=== PATIENT | male | born 1980 | race Caucasian/White ===

== ENCOUNTER 2021-01-09 08:32 | Outpatient (CLI) | payer OTHER, SELFPAY ==
[2021-01-10 14:55] LABS: COVID-19 RT-PCR UVMMC Result Negative (Negative)
== END 2021-01-09 08:33 | disposition home or self-care (01) ==
PROVIDERS: PCP Internal Medicine; Visit Provider Internal Medicine
DX: Z20.822 Contact with and (suspected) exposure to COVID-19 (principal)
CPT/HCPCS: U0003

== ENCOUNTER 2024-10-28 16:29 | Emergency (ER) | payer OTHER, SELFPAY ==
--- NOTE | 2024-10-28 16:30 | DI.RAD_ITS ---
Exam(s) XR HAND LT LIMITED EXAM: XR HAND LT LIMITED CLINICAL HISTORY: Visibly deformed PIP left middle finger. TECHNIQUE: 2D digital imaging was performed. COMPARISON: No exams were available for comparison FINDINGS: Two views-AP and lateral Limited two view study of the left hand reveals no evidence of fracture or dislocation nor abnormal s oft tissue densities. Bone density is normal. There are no osseous lesions nor erosions. IMPRESSION: No significant osseous findings on this limited two view study of the left hand. DATA REPOSITORY: RADIATION DOSE DELIVERED:
[2024-10-28 16:31] VITALS: BP 142/89; PULSE 80; RESP 18; TEMP 36.4; O2SAT 96
--- NOTE | 2024-10-28 16:45 | W.ED.GENAD ---
Discharge Plan Disposition Patient Disposition: Home Discharge Details Clinical Impression: Dislocation of distal interphalangeal (DIP) joint of finger Primary Care Provider: None,None ED Provider: Nancy Sullivan Home Meds and New Rx's Prescriptions: No Action ibuprofen [Advil Liqui-Gel] 200 MG capsule 200 mg PO Q4H PRN Patient Comments: 08/22/14 pt states he takes `~10 tabs/day Discharge Instructions Instructions: Finger Dislocation (DC) Additional Instructions: You may use Tylenol or ibuprofen as needed for discomfort. Ice and elevation may also be helpful. Return to emergency care if you develop new numbness, color change to finger, or if you are very worried and need to be rechecked again immediately Discharge Data Discharge Date/Time-TO BE ENTERED AT DEPARTURE: 10/28/24 17:29 HPI General Date/Time Provider Initiated Documentation: 10/28/24 16:40. HPI Narrative: Munod is a 44year old male who presents to the emergency department today for evaluation of left middle finger pain. He reports that he fell getting up that struck, landed with his left middle finger extended, immediately deformed. He does have sensation distally. No previous injury to this finger. He is right-handed. No other injuries reported. No significant past medical history. Physical exam remarkable for visibly dislocated left middle finger DIP. Sensation intact. Brisk cap refill. No overlying abrasion/lacerations/skin tears. D/dx includes but is not limited to: Dislocation, fracture Digital block and reduction performed by Dr. Mcknight. Please see his note. I independently interpreted the following tests: Left hand x-ray, no fracture noted. Dislocation was reduced. Reviewed discharge instructions with patient, including symptomatic management and red flags indicating need for return to emergency care Related Data Home Medications ?Medication ?Instructions ?Recorded ?Confirmed ibuprofen 200 mg capsule (Advil 200 mg PO Q4H PRN 08/22/14 10/28/24 Liqui-Gel) Allergies Allergy/AdvReac Type Severity Reaction Status Date / Time No Known Allergies Allergy Unverified 10/28/24 16:36 General Stated Complaint: Orthopedic COURTNEY: 4 Review of Systems Narrative: See HPI Exam Const General: cooperative, healthy appearing, no acute distress, well developed and well groomed Nutritional Appearance: average body habitus Orientation: alert and oriented x3 Resp Effort & Inspection: normal respiratory effort and able to speak in complete sentences Skin General skin exam: no rashes or lesions noted Trauma: no lacerations or abrasions Neuro General: patient alert, patient oriented x3, tone normal, moves all extremities and no focal motor deficits Sensory Exam: no sensory deficits noted Extrem Right upper extremity: normal to inspection Left upper extremity: hand Details: normal capillary refill, neurosensory exam normal and other (Obvious deformity consistent with dislocation of DIP to middle finger); no unusual warmth, no swelling, no abrasions, no lacerations, no ecchymosis, no foreign bodies and no puncture wound Course Vital Signs Vital signs: Vital Signs Temperature 36.4 C 10/28/24 16:31 Pulse 80 10/28/24 16:31 Respiratory Rate 18 10/28/24 16:31 Blood Pressure 142/89 H 10/28/24 16:31 Pulse Oximetry 96 10/28/24 16:31 Temperature 36.4 C 10/28/24 16:31 Temperature Source Oral 10/28/24 16:31 Pulse 80 10/28/24 16:31 Respiratory Rate 18 10/28/24 16:31 Blood Pressure 142/89 H 10/28/24 16:31 Blood Pressure Position Sitting 10/28/24 16:31 Pulse Oximetry 96 10/28/24 16:31 Oxygen Delivery Method Nasal Cannula 10/28/24 16:31 Medical Decision Making Imaging Data Radiologic Study: Radiologist's impression: Exam(s) XR HAND LT LIMITED EXAM: XR HAND LT LIMITED CLINICAL HISTORY: Visibly deformed PIP left middle finger. TECHNIQUE: 2D digital imaging was performed. COMPARISON: No exams were available for comparison FINDINGS: Two views-AP and lateral Limited two view study of the left hand reveals no evidence of fracture or dislocation nor abnormal soft tissue densities. Bone density is normal. There are no osseous lesions nor erosions. IMPRESSION: No significant osseous findings on this limited two view study of the left hand. 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 Chronic right-sided low back pain without sciatica (Chronic) [facility] Family History Mother Rheumatoid arthritis Arrhythmia Arthritis COPD (chronic obstructive pulmonary disease) Father Hyperlipidemia Sister Rheumatoid arthritis Arthritis RA Brother No problems noted. Grandfather Diabetes Personal history of malignant neoplasm colon CA Grandmother Heart disease Son No problems noted. Daughter No problems noted. Daughter No problems noted. Daughter No problems noted. Maternal Uncle , [place] at age 41. Heart disease Maternal Cousin , [place] at age 20. Personal history of malignant neoplasm Heart disease Maternal Aunt Diabetes type 1 Maternal Aunt Stroke Grandfather Heart disease Social History Smoking/Tobacco Use Status: Never Smoking risk assessment performed?: Yes Alcohol Intake: current Alcohol Intake frequency: a few times a week Substance use type: does not use Housing: house Do you feel safe at home: Yes Do you feel safe in your relationship?: Yes PAWSS Have you Been Recently Intoxicated or Drunk Within the Last 30 days?: No Have you Ever Experienced Previous Episodes of Alcohol Withdrawal?: No Have you ever Experienced Withdrawal Seizures?: No Have you ever Experienced Delirium Tremens(DT)s?: No Have you ever undergone Alcohol Rehabilitation Treatment (i.e, inpt ot outpatient treatment programs)?: No Have you ever Experienced Blackouts?: No Have you ever Combined Alcohol with other Downers within the last 90 days?: No Have you ever Combined Alcohol with any other Substance of Abuse during the last 90 days?: No Positive Blood Alcohol level on Presentation? [PCS.BAL]: No Evidence of Increased Autonomic Activity (i.e. HR>120, tremor, sweating, agitation, nausea)?: No Result: 0
[2024-10-28] MEDS: Bupivacaine 0.5% Pres-Free 30 ML VIAL (17:03)
--- NOTE | 2024-10-28 17:17 | W.ED.PROC ---
Date of service: 10/28/24 Time of Service: 17:17 Procedures Orthopedic Joint Reduction Joint #1: Time Out Performed: Yes Side: left Joint Reduction Location: finger Analgesia: digital block Local Anesthesia: Bupivicaine 0.25% Amount of anesthesic used (mL): 3 Technique used: traction/counter-traction Post-reduction neuro exam: intact Post-reduction vascular: intact Post Reduction X-Ray Obtained: Yes Post Reduction X-Ray Results: reduced Splint Applied: No Patient Tolerated Procedure: no complications Medical Decision Making Patient demonstrated evidence of dislocation at the distal phalange he. Finger was blocked after demonstrating normal neurovascular exam. Finger was reduced without complication. Patient tolerated this well and a good movement afterward with excellent capillary refill. I have extensively reviewed the treatment plan and discharge instructions with the patient. I have addressed all patient concerns at this time. The patient was made aware of what symptoms to monitor for that would warrant a return to the emergency department. Discussed the plan with the patient, they demonstrate verbal understanding and agreement with our assessment and plan at this time. The documentation in this chart was dictated using [employer] dictation software. Please excuse any dictation errors. Quality:SDOH Health Related Social Needs: No Data to Display
--- OUTSIDE RECORDS SUMMARY | 2024-10-28 17:22 | XMS_ITS | Encounter Summary ---
Author Organization [facility] Address [facility] [place] [address] Care Team Providers Care Financial Wellness Coach Name Role Phone Love Jimenez MD Primary Care Provider Encounter Details Date Type Department Care Team (Latest Contact Info) Description 12/13/2014 12:50 PM EST - 12/13/2014 11:59 PM EST Hospital Encounter XRay at [address] [place] [address] Spondyloarthritis Social History Tobacco Use Types Packs/Day Years Used Date Smoking Tobacco: Former Sex and Gender Information Value Date Recorded Sex Assigned at Not on file Gender Identity Not on file Sexual Orientation Not on file documented as of this encounter Medications at Time of Discharge Medication Sig Dispensed Refills Start Date End Date diclofenac (VOLTAREN) 50 mg Tablet, Delayed Release (E.C.) Take 1 tablet by mouth 3 times daily as needed (For pain and stiffness). 90 tablet 3 12/13/2014 06/22/2018 documented as of this encounter Plan of Treatment Not on file documented as of this encounter Procedures Procedure Name Priority Date/Time Associated Diagnosis Comments XR LUMBAR SPINE 2 OR 3 VIEWS Routine 12/13/2014 12:58 PM EST Spondyloarthritis documented in this encounter Results * XR lumbar spine 2 or 3 views (12/13/2014 12:58 PM EST) Anatomical Region Laterality Modality L-spine N/A Radiographic Mal[place] ging 12/13/2014 12:5 8 PM EST Impressions 12/13/2014 1:09 PM EST IMPRESSION: 1. No recent or acute fracture. 2. Mild scattered degenerative changes are noted in lumbar spine Narrative 12/13/2014 1:09 PM EST EXAMINATION: LSPINE 2 OR 3 VIEWS CLINICAL HISTORY: Inflammatory back pain - suspect ankylosing spondylitis TECHNIQUE: AP and lateral. COMPARISON: None FINDINGS: No recent or acute fracture is identified. Mild scattered degenerative changes are noted in lumbar spine. There is no bony ankylosis. No bony erosions are identified. Mild osteoarthritis involves the sacroiliac joints, right more than left. No lytic or blastic lesions are identified Procedure Note Porfirio Springer MD - 12/13/2014 EXAMINATION: LSPINE 2 OR 3 VIEWS CLINICAL HISTORY: Inflammatory back pain - suspect ankylosingspondylitis TECHNIQUE: AP and lateral. COMPARISON: None FINDINGS: No recent or acute fracture is identified. Mild scattered degenerativechanges are noted in lumbar spine. There is no bony ankylosis. No bony erosionsare identified. Mild osteoarthritis involves the sacroiliac joints, right more than left. No lytic or blastic lesions are identified IMPRESSION IMPRESSION: 1. No recent or acute fracture. 2. 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
--- OUTSIDE RECORDS SUMMARY | 2024-10-28 17:22 | XMS_ITS | Encounter Summary ---
Author Organization [facility] Address [address] [place] [address] Care Team Providers Care Salesperson New Cars Name Role Phone Unavailable Primary Care Provider Unavailabl e Encounter Details Date Type Department Care Team (Late st Contact Info) Description 01/09/2021 Lab Requisition [facility] Pathology & Laboratory Medicine - [facility] [address] [place] [address] Outr Resulting Lab, Provider Social History Tobacco Use Types Packs/Day Years Used Date Smoking Tobacco: Never Assessed Interpersonal Safety Answer Date Record ed Physically Hurt Never 01/10/2021 Verbally Threaten Not on file 01/10/2021 Sex and Gender Information Value Date Recorded Sex Assigned at Not on file Legal Sex Male 11:42 EDT Gender Identity Not on file Sexual Orientation Not on file documented as of this encounter Plan of Treatment Not on file documented as of this encounter Procedures Procedure Name Priority Date/Time Associated Diagnosis Comments ZZCOVID-19 TEST [facility] PCR Today 01/09/2021 8:41 EDT COVID-19 TESTING Routine 01/09/2021 8:41 EDT documented in this encounter Results * COVID-19 TEST [facility] PCR (01/09/2021 8:41 EDT) Swab ENTIRE NASOPHARYNX / Unknown 01/09/2021 8:41 EDT 01/09/2021 16:54 EDT us Provider Outr Resulting Lab MICROBIOLOGY - GENER AL ORDERABLES Final Result [facility] [address] [place] [address] * COVID-19 TESTING (01/09/2021 8:41 EDT) COVID-19 rt-PCR Result Negative Negative 01/10/2021 14:[address] [facility] Comment: This test has not been FDA cleared or approved. This test has been authorized by FDA under an EUA for use by authorized laboratories. This test has been authorized only for detection of nucleic acid from 2019-nCoV, not for any other viruses or pathogens. This test is only authorized for the duration of the declaration that circumstances exist justifying the authorization of emergency use of in vitro diagnostic tests for detection and/or diagnosis of 2019-nCoV under section 564(b)(1) of Act, 21 U.S.C ?? 360bbb-3(b) (1), unless the authorization is terminated or revoked sooner. Negative results do not preclude 2019-nCoV infection and should not be used as the sole basis for treatment or other patient management decisions. Negative results must be combined with clinical observations, patient history, and epidemiological information. This test was developed and its performance characteristics determined by [facility]. It has not been cleared or approved by the US Food and Drug Administration. FDA does not require this test to go through premarket FDA review. This test is used for clinical purposes. It should not be regarded as investigational or for research. This laboratory is certified under the Clinical Laboratory Improvement Amendments (CLIA) as qualified to perform high complexity clinical laboratory testing. This test is based on the [facility] COVID-19 Emergency Use Authorization (EUA) assay, with minor modification as defined by the FDA Performed on the Renewable Fundingo 7 Flex RT-PCR System. Performing Lab [facility] Lab 01/10/2021 14:[address] [facility] Swab 01/09/2021 8:41 EDT 01/09/2021 16:54 EDT us Provider Outr Resulting Lab MICROBIOLOGY - GENER AL ORDERABLES Final Result [facility] [address] [place] [address] documented in this encounter Visit Diagnoses Not on filedocumented in this encounter
--- OUTSIDE RECORDS SUMMARY | 2024-10-28 17:22 | XMS_ITS | Clinical Summary ---
Author Organization [facility] Address [address] [place] [address] Care Team Providers Care Patient Financial Specialist Name Role Phone Unavailable Primary Care Provider Unavailabl e Social History Tobacco Use Types Packs/Day Years Used Date Smoking Tobacco: Never Assessed Interpersonal Safety Answer Date Record ed Physically Hurt Never 01/10/2021 Verbally Threaten Not on file 01/10/2021 Sex and Gender Information Value Date Recorded Sex Assigned at Not on file Legal Sex Male 11:42 EDT Gender Identity Not on file Sexual Orientation Not on file Plan of Treatment Health Maintenance Due Date Last Done Comments Hepatitis C Screen 1979 Hepatitis B Vaccine (1 of 3 - 19+ 3-dose series) 02/20 COVID-19 Vaccine ( season) 2024
--- OUTSIDE RECORDS SUMMARY | 2024-10-28 17:22 | XMS_ITS | Clinical Summary ---
Author Organization [facility] Address [facility] [place] [address] Care Team Providers Care Mlt Name Role Phone Love Jimenez MD Primary Care Provider [phone] Allergies No known active allergies Medications Medication Sig Dispensed Refills Start Date End Date Status Ibuprofen 200 mg Capsule 400mg Every 6 hours, as needed 12/16/2016 Active acetaminophen (TYLENOL) 500 mg Tablet Take 1,000 mg by mouth every 6 hours as needed for Pain. Active meloxicam (MOBIC) 7.5 mg TabletIndications:Chr onic right-sided low back pain without sciatica,Chronic pain of both knees Take 1 tablet by mouth daily. 30 tablet 12 06/22/2018 Active Active Problems Problem Noted Date Diagnosed Date Chronic right-sided low back pain without sciati ca 06/22/2018 Chronic pain of both knees 06/22/2018 Immunizations Name Administration Dates Next Due Influenza (FluMist) Trivalent Intranasal, LIVE 1 Social History Tobacco Use Types Packs/Day Years Used Date Smoking Tobacco: Never Smokeless Tobacco: Never Sex and Gender Information Value Date Recorded Sex Assigned at Not on file Gender Identity Not on file Sexual Orientation Not on file Last Filed Vital Signs Vital Sign Reading Time Taken Comments Blood Pressure 122/75 06/22/2018 1:03 PM EDT Pulse 71 06/22/2018 1:03 PM EDT Temperature 36.7 ??C (98 ??F) 12/13/2014 10:54 AM EST Respiratory Rate - - Oxygen Saturation 100% 06/22/2018 1:03 PM EDT Inhaled Oxygen Concentration - - Weight 88.5 kg (195 lb) 06/22/2018 1:03 PM EDT Height 190.5 cm (6' 3) 06/22/2018 1:03 PM EDT Body Mass Index 24.37 06/22/2018 1:03 PM EDT Plan of Treatment Health Maintenance Due Date Last Done Comments CT Colonography 1979 Colonoscopy 1979 Colorectal Cancer Screening 1979 FIT DNA 1979 FIT 1979 Sigmoidoscopy (10 year) with FIT yearly 1979 Sigmoidoscopy 1979 HIV screen 1997 Hepatitis C Screening 1997 Lipid Screening 1997 Hepatitis B vaccine (0-59 yrs) (1) 1998 Tetanus/Diphtheria/Pertussis Vaccines (1 - Tdap) 02/20 Covid-19 Vaccine (1 - season) 2024 Influenza (Flu) vaccine (1 o f 1 - Influenza standard series) 06/25/2024 07/25/2014 Care Teams Mlt Relationship Specialty Start Date End Date Love Jimenez MD [address] [place], [place] [id number] PCP - General 09/27/14
--- OUTSIDE RECORDS SUMMARY | 2024-10-28 17:22 | XMS_ITS | Encounter Summary ---
Author Organization [facility] [place] [address] Care Team Providers Care Plaster Molder Name Role Phone Love Jimenez MD Primary Care Provider [phone] Encounter Details Date Type Department Care Team (Late st Contact Info) Description 01/03/2009 Orders Only Dermatology at [place] [address] [facility] [place] [id number] Benson Wilson MD [address] [facility], [place] [address] Social History Tobacco Use Types Packs/Day Years Used Date Smoking Tobacco: Never Assessed Sex and Gender Information Value Date Recorded Sex Assigned at Not on file Gender Identity Not on file Sexual Orientation Not on file documented as of this encounter Plan of Treatment Not on file documented as of this encounter Procedures Procedure Name Priority Date/Time Associated Diagnosis Comments SURGICAL PATHOLOGY REPORT Routine 01/03/2009 6:09 PM EDT documented in this encounter Results * Surgical Pathology Report (01/03/2009 6:09 PM EDT) Surgical Pathology Report [id number] ? Location: [facility] The signing pathologist has (i) examined the relevant preparation(s) for the specimen(s) and (ii) rendered or confirmed the diagnosis(es). . ?Pathology Surgical Pathology Final Report Clinical Information Specimen Submitted: A - (L) neck, (L) arm, 4-mm Punch (2): Clinical History: 6-8-week H/O pruritic generalized papular dermatitis Clinical Diagnosis: Spongiotic dermatitis vs ? Report to: Benson Wilson MD, III [facility] [place], [place] ??[address] Gross Description Labeled/Fixative : ? Labeled with the patient's name, formalin. Qty/Size/Weight: ?Two punches, 0.4 cm, of harman skin, excised to depths ?of 0.2 cm and 0.4 cm. Sections/Process ing: ??The shallow punch is marked with black ink. ??Both are ?bisected. ??(T1) ??aje/EJR Microscopic Description Slides reviewed, microscopic description not recorded. Diagnosis Skin, left neck and left arm, punch biopsy: ?? Spongiotic dermatitis with parakeratosis, focal erosion containing superficial neutrophilic infiltrate, superficial perivascular lympho-eosinophi lic infiltrate (see Comment). CR-0 01/08/09 VMS 01/08/09 Verified by: ? Serge BORRERO, PhD, [place] ?Dermatopatholo gist ?(Electronic Signature) The attending pathologist whose signature appears on this report has reviewed all diagnostic slides and has edited the gross and/or microscopic portion of the report in rendering the final pathologic diagnosis. Comment No fungi are seen in PAS-reacted sections. ? The histologic changes are consistent with spongiotic/eczem atous dermatitis. [facility] 01/03/2009 6:09 PM EDT Benson Wilson MD PATHOLOGY/CYTOLOGY O RDERABLES [facility] documented in this encounter Visit Diagnoses Not on filedocumented in this encounter Care Teams Plaster Molder Relationship Specialty Start Date End Date Love Jimenez MD [address] [place] [address] PCP - General 09/27/14 documented as of this encounter
--- OUTSIDE RECORDS SUMMARY | 2024-10-28 17:22 | XMS_ITS | Encounter Summary ---
[place] [address] Care Team Providers Care Tubular Splitting Machine Tender Name Role Phone Elisabeth Jimenez MD Primary Care Provider [phone] Encounter Details Date Type Department Care Team (Latest Contact Info) Description 12/13/2014 10:45 AM EST [place] [id number] Hunter Casanova MD Spondyloarthritis Discharge Disposition: Home Social History Tobacco Use Types Packs/Day Years Used Date Smoking Tobacco: Former Sex and Gender Information Value Date Recorded Sex Assigned at Not on file Gender Identity Not on file Sexual Orientation Not on file documented as of this encounter Last Filed Vital Signs Vital Sign Reading Time Taken Comments Blood Pressure 127/79 12/13/2014 10:54 AM EST Pulse 77 12/13/2014 10:54 AM EST Temperature 36.7 ??C (98 ??F) 12/13/2014 10:54 AM EST Respiratory Rate - - Oxygen Saturation 99% 12/13/2014 10:54 AM EST Inhaled Oxygen Concentration - - Weight 89.2 kg (196 lb 9.6 oz) 12/13/2014 10:54 AM EST Height 190.5 cm (6' 3) 12/13/2014 10:54 AM EST Body Mass Index 24.57 12/13/2014 10:54 AM EST documented in this encounter Progress Notes * Hunter Casanova MD - 12/13/2014 11:22 AM EST RHEUMATOLOGY STAFF OFFICE NOTE Patient Name: Mundo Headley Date of encounter: 12/13/2014 Mr. Headley is a 34 y.o. male whom I am seeing at the request of ELISABETH JIMENEZ MD for evaluation of joint pains. Mundo feels very old. He has morning stiffness that lasts for hours. If he sits for a prolonged time he feels stiff and painful. This has been going on for about 3 or 4 years. The low back is most problematic for him. He does have pain other places, but the low back is quite troublesome. He has been to PT without much benefit. He also has pain in the hands, wrists, knees. He does not have joint swelling. In general he is feeling better if he is up and moving around. Sometimes the low back willwake him at night. He has tried ibuprofen 400mg which helps some. Tylenol occasionally helps, but not as much as ibuprofen. He has tried glucosamine/chondroitin which really didn't help at all. He has not been on any prescription medications for this. He does have fatigue. He has had eczema, but does not have any history of psoriasis (or family history). He has not had red, painful eyes. There are occasional mouth sores. He can't recall if he has ever had a toe swell up like a sausage. Bowels are normal, no diarrhea, no blood in the stool. Thereis no change to urination. There is no chest pain, no cough, no shortness of breath. PMH - Eczema - No surgeries HOME MEDICATIONS: Ibuprofen OTC as needed ALLERGIES/ADVERSE REACTIONS No Known Allergies FAMILY HISTORY: Sister has some form of arthritis, still not sure what type (three years younger). There is a cousin with rheumatoid arthritis. His mother has osteoarthritis and osteoporosis. Father has hypertension. There is no psoriasis, inflammatory bowel disease. SOCIAL HISTORY: , lives in [facility]. Works as a wireless sales representative. Has five children. Quit smoking in 2010. No alcohol, no recreational drugs.n PHYSICAL EXAM BP 127/79 Pulse 77 Temp(Src) 36.7 ??C (98 ??F) (Oral) Ht 190.5 cm (6' 3) Wt 89.177 kg (196lb 9.6 oz) BMI 24.57 kg/m2 SpO2 99% Gen: Alert, NAD, oriented, conversant HEENT: Anicteric, no scleral injection, OP clear, MMM Neck: supple, no LAD, no thyromegaly, full ROM CV: RRR, no m/r/g Resp: CTA B Abd: Soft, NT, ND, no organomegaly Back: There is no spinal or SI joint tenderness. Schobers is normal (10cm ->15 cm), and chest expansion is normal (+ 6cm). Ext: No LE edema, nodules or cyanosis Joint exam: A full joint exam was performed: Shoulders: Normal ROM, no tenderness, but he is a little slow with full abduction Elbows: Normal, no swelling, no tenderness Wrists: No swelling, no tenderness, full flexion and extension Hands: No tenderness or swelling of the MCPs, PIPs, DIPs. Full fist and claw Hips: Full ROM, no trochanteric tenderness. Knees: No effusions, there is left joint line tenderness and tenderness at the patellar tendon insertion, full ROM Ankles: No swelling, there is mild tenderness right ankle and right Achilles insertion. Feet: No MTP swelling or tenderness. Skin: No rashes or erythema Neuro: Patellar and ankle reflexes are 2+ bilaterally ASSESSMENT AND PLAN Mr. Headley is a 34 year old who has inflammatory back pain. Fortunately, he does not have evidence of a peripheral arthritis (though the left knee is a little suspicious), nor does he have evidence ofdactylitis or extra-articular disease. 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 I will get an HLA-B27, CRP, and plain films of the back and pelvis to evaluate. If there areradiologic changes than this would clearly fit. 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 I will have him take diclofenac 50mg 2 or 3 times a day, with meals. If this results in resolution of his symptoms, then we will just stick with that strategy. If not helpful, then I would try a different NSAID, either indomethacin or piroxicam. If still not helpful, then we would need to consider back MRI to evaluate for marrow edema or other radiologic evidence of . At that point we would need to have a discussion about the role of TNF inhibitors. I will see him back in one month. documented in this encounter Miscellaneous Notes * Addendum Note - Erika Skinner - 12/13/2014 12:52 PM ESTAddended by: ERIKA SKINNER on: 12/13/2014 12:52 PM Modules accepted: Orders documented in this encounter Plan of Treatment Not on file documented as of this encounter Procedures Procedure Name Priority Date/Time Associated Diagnosis Comments HLA-B27 Routine 12/13/2014 1:03 PM EST Spondyloarthritis WBC Routine 12/13/2014 1:03 PM EST CRP, CARDIAC RISK (HS CRP) Routine 12/13/2014 1:03 PM EST Spondyloarthritis documented in this encounter Results * WBC (12/13/2014 1:03 PM EST) White Blood Cell 7.6 4.0 - 10.0 x10(3)/mcL [facility] Blood specimen (specimen) 12/13/2014 1:03 PM EST 12/13/2014 1:11 PM EST Narrative Resulting Agency Comment Spec In Lab Hunter Casanova MD HEMATOLOGY ORDERABLE S [facility] * HLA-B27 (12/13/2014 1:03 PM EST) HLA-B27 Negative [facility] HLA B27 Interpretation HLA B27 antigen was not detected. Method: Flow Cytometry Reference: 1.Colten DA, Trinh FD, Octavio A, et al: Ankylosing spondylitis and HLA-27. Lancet 1973;1:904-907 2.Vasu J, Kylie CAMACHO: HLA-B27 typing by use of flow cytofluorometr y. Clin Chem 1987;33:1619-1 623 [facility] White Blood Cell 7.6 4.0 - 10.0 x10(3)/m cL [facility] Blood specimen (specimen) 12/13/2014 1:03 PM EST 12/13/2014 1:11 PM EST Narrative Resulting Agency Comment Spec In Lab Hunter Casanova MD HEMATOLOGY ORDERABLE S Performing Organization Address [facility] Phone Number [facility] * High Sensitivity CRP (12/13/2014 1:03 PM EST) C-Reactive Protein High Sensitivity <0.2 mg/L [facility] Comment: Interpretations: 1) For accurate cardiac risk assessment, the average of 2 values >2 weeks apart should be obtained (ref 1&2). A value >10 mg/L indicates an inflammatory condition, concentrations >10 mg/L should not be used for cardiac risk assessment. ?<1.0 mg/L: low risk ?1.0 - 3.0 mg/L: moderate risk ?>3.0 mg/L: high risk groups for future cardiovascular events 2) The general reference range of apparently healthy individuals using this test is <5.0 mg/L (derived from the test package insert) References: 1. Burrell TA et. al. ??AHA/CDC Scientific Statement: Markers of Inflammation and Cardiovascular Disease. ??Circulation 2003; 107:499-511 2. Ridker PM. ??Clinical applications of C-reactive protein for cardiovascular disease detection and prevention. 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
--- OUTSIDE RECORDS SUMMARY | 2024-10-28 17:22 | XMS_ITS | Encounter Summary ---
Author Organization [facility] [place] [address] Care Team Providers Care Core Piler Name Role Phone Love Jimenez MD Primary Care Provider [phone] Reason for Visit * Consultation (Routine) - Closed Specialty Diagnoses / Procedures Referred By Omar altman Referred To Contact Rheumatology Diagnoses INFLAMMATORY BACK PAIN Lola Lemon, HYDROPULPER [address] [place] [address] [facility] Rheumatology [address] [place] [id number] Referral ID Status Reason Start Date Expiration Date V isits Requested Visits Authorized [id number] Closed Consult, Test & Treat [facility] 04/26/2018 04/26/2019 1 1 Encounter Details Date Type Department Care Team (Late st Contact Info) Description 06/22/2018 1:00 PM EDT [place] [address] Marciano Rae MD [facility] [place] [address] Chronic right-sided low back pain without sciatica; Chronic pain of both knees; Fatigue, unspecified type Social History Tobacco Use Types Packs/Day Years [...] Pulse 71 06/22/2018 1:03 PM EDT Temperature - - Respiratory Rate - - Oxygen Saturation 100% 06/22/2018 1:03 PM EDT Inhaled Oxygen Concentration - - Weight 88.5 kg (195 lb) 06/22/2018 1:03 PM EDT Height 190.5 cm (6' 3) 06/22/2018 1:03 PM EDT Body Mass Index 24.37 06/22/2018 1:03 PM EDT documented in this encounter Patient Instructions * Patient Instructions* Marciano Rae MD - 06/22/2018 1:00 PM EDT Get labs today at 3L. Call or myDH for results if you don't hear from us by next week. Start meloxicam, 7.5 mg once a day with food. (Rx sent in.) You can continue to take Tylenol (acteaminophen), but not ibuprofen with the meloxicam. Depending on your response to the med and your lab work, we may proceed with an MRI of your pelvis. Follow up in 6 months. Call if problems. documented in this encounter Progress Notes * Marciano Rae MD - 06/22/2018 1:00 PM EDT Rheumatology Clinic: Dr. Rae 06/22/2018 [id number] Gabby Headley is a 38 y.o. male patient whom we see in consultation for Love Jimenez MD in evaluation of predominantly low back and knee pain. This is a patient who was seen by Dr. Hunter Casanova here in our clinic back on 11/2014. Dr. Casanova at the time felt that the patient gave a good story forinflammatory low back pain and suspected a spondyloarthropathy. The patient complained of significant stiffness in his low back andhis legs, and had the sense that he felt older than his 34 years of age at the time. He started him on diclofenac 50 mg twice a day. However, laboratory studies showed a normal CRP and a negative HLA-B27, and x-rays were read as showing an essentially normal lumbar spine and just mild degenerative changes of the SI joints, right greater than left. We do have a message back from the patient about a week after the visit reviewing the negative laboratory and x-ray studies, but also noting that the diclofenac had been dramatically helpful. In fact, the patient stated at the time that he felt the best he had in years. He was then lost to follow-up. He returns now reporting that his low back and his knees are now his major problem areas. He reallydidn't complain much about anyplace else today. He described, as before, significant gelling phenomena such that if he sits too long or goes for a long car trip, he will have difficulty standing straight up due to pain in the low back. He will also have stiff knees. He also has trouble when he first gets out of bed in the morning. He is stiff in the back and the knees and he has trouble going downstairs. Once he is going for a while, he tends to loosen up and feel better. He's found that if he keeps active, he generally does much better. In terms of location of the back pain, he points to thearea of the right SI joint. The pain will sometimes radiate down into the buttocks and the right leg, but just to the level of about the mid thigh. He's noted no significant weakness, numbness, or tingling. He does have a history of eczema that began about 10 years ago, which is around the same time that his back issue began in earnest. This predominantly involved his arms, chest, back, and almost confluent along his flank, as per Dr. Steve lyons in 2008. A biopsy showed histologic changes ... consistent with spongiotic/eczematous dermatitis. He was seen by Dr. Millard in dermatology here, who concurred. He does remember having a knee injury in high school and it was thought that he might have some cartilage damage. He also has a prominent tibial tubercle on that side. Lately though, it's the right knee that bothers him more, particularly going up and down stairs. In any case, the skin diseasedoes not bother him that much now, and he has just a few crops of this on his pretibial areas, especially on the left now. He does have flareups where things will get worse for a day or two, up to a week or so. He does not recall the dermatologists being concerned about possible psoriasis. There is no family history ofpsoriasis, but a sister has some type of inflammatory arthritis and a cousin has rheumatoid arthritis. His mother has osteoarthritis. He denies inflammatory eye disease, venereal infection, bowel problems. He does have some dry skin in his hands. He also has some dandruff and uses a psoriasis shampoo to wash his hair. He does not know what would happen if he did not shampoo every day, because he generally does. Therapeutically, he's used OTC ibuprofen and Tylenol. In terms of dosing, he specifically uses 400 mg of ibuprofen per dose and 1000 mg of acetaminophen per dose. He does not take either regularly, but just as needed. They help somewhat. Past Medical History Eczema. Reactive airway disease. 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 No previous surgery. Medications Medications 06/22/18 1306 Medication Sig Taking? Ibuprofen 200 mg Capsule 400mg Every 6 hours, as needed Yes acetaminophen (TYLENOL) 500 mg Tablet Take 1,000 mg by mouth every 6 hours as needed for Pain. Yes meloxicam (MOBIC) 7.5 mg Tablet Take 1 tablet by mouth daily. Social History He is . He is a retired marine. He has 6 children. He lives in [place]. 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 He does not drink. Denies recreational drugs. He smoked but quit in 2010. Family History His father is fairly healthy. He just has hypertension. His mother has some medical problems. She is 63 and fell and broke her arm. She has osteoarthritis and osteoporosis. His sister has some form of arthritis, for which she is on treatment. A cousin had rheumatoid arthritis. Brother is healthy. There is coronary artery disease in a maternal grandmother and grandfather. Paternal uncle of anMI in his 40s. Paternal cousin of an KS in his 20s. His grandfather had diabetes and another grandfather had a colorectal cancer. Review of Systems Positive as mentioned above. No fever, chills, sweats. Appetite is good and his weight is stable. Otherwise, the rheumatology, cardiology, pulmonary, GI, , neurology, dermatology, and hematology review of systems is negative or non-contributory. Physical Exam: He looks well. He is in good spirits. He is a soft-spoken, healthy-appearing gentleman. Blood pressure 122/75, pulse 71, height 190.5 cm (6' 3), weight 88.5 kg (195 lb), SpO2 100 %. Skin : He has some obvious dandruff and there is a small area of erythema at the posterior capital scalp, but no definite psoriatic plaques. There is nothing in his ear canals or behind his ears. HEENT: PERRL, EOM+, no eye inflammation, no oral ulcers, good moisture. Neck: Supple. No lymphadenopathy or thyromegaly. Lungs: Clear. Heart: Regular rhythm and rate without murmur, gallop, or rub. Abdomen: Benign. No masses, tenderness, or organomegaly. Extremities: No edema. Good distal pulses. Musculoskeletal: He has no synovitis in his hands. He does have some vasomotor hyperreactivity witheasy blanching of the dorsum of his fingers. (He denies Raynaud's.) There is no synovitis and very little in the way of degenerative changes. He is not hypermobile. His wrists, elbows, and shoulders move well. The area of his pain is over the right SI joint although he is not tender there today. His hips move well and motion of the hips does not produce back pain. His right knee moves well with no crepitance. There is no warmth or effusion there. His left knee has just mild crepitance on range of motion. There is no warmth or effusion. He does have a slightly prominent tibial tubercle on the left side, not on the right. His ankles are fine, including the tendon insertions. Apparently on hisvisit with Dr. Casanova, he did have some evidence of mild insertional Achilles tendinitis. His distalfeet show minimal DJD without synovitis. Neuro: 5/5 proximal muscle strength in the upper and lower extremities. DTRs 2+ and symmetrical. Toes downgoing. Negative Romberg. Assessment & Plan: We had a long discussion about his situation, but I still think there is a distinct possibility that he has a seronegative spondyloarthropathy. I wonder if his eczema is actually psoriasis, although I do not find any strong evidence of that today and he had a biopsy c/w eczema. Looking at his x-ray studies 3-1/2 years ago, I thought his SI joints were in fact abnormal, especially on the right and, this could be degenerative disease, but it's unusual for a 34-year-old without any previous trauma, etc., to have degenerative sacroiliac changes. I think at this point we really need an MRI of the pelvis to sort things out. For the time being, in addition to lab work, we started him on meloxicam 7.5 mg a day with food. I told not to take the ibuprofen while he is doing that, although we can take additional acetaminophenas he feels he needs for that. Once the labs are back and we see his response to meloxicam, we would probably move onto the MRI of the pelvis. He understood the plan. I'll see him in follow-up in 6 months. We gave the patient the following recommendations: Patient Instructions Get labs today at 3L. Call or myDH for results if you don't hear from us by next week. Start meloxicam, 7.5 mg once a day with food. (Rx sent in.) You can continue to take Tylenol (acteaminophen), but not ibuprofen with the meloxicam. Depending on your response to the med and your lab work, we may proceed with an MRI of your pelvis. Follow up in 6 months. Call if problems. Orders Placed This Encounter Procedures ??? GC/Chlamydia (Leb/CGP) Urine ??? GC/Chlam ??? CBC (with Diff) ??? Sedimentation rate ??? CRP, acute inflammation ??? Vitamin B12 ??? TSH ??? EASTON ??? Hemogram ??? Differential, Automated Visit Diagnoses: 1. Chronic right-sided low back pain without sciatica 2. Chronic pain of both knees 3. Fatigue, unspecified type Results for GABBY HEADLEY ( ) Ref. Range 06/22/2018 14:11 WBC Latest Ref Range: 4.0 - 9.5 x10(3)/mcL 7.2 RBC Latest Ref Range: 4.58 - 5.54 x10(6)/mcL 4.53 (L) Hemoglobin Latest Ref Range: 13.7 - 16.5 gm/dL 13.6 (L) Hematocrit Latest Ref Range: 40.5 - 48.5 % 40.4 (L) MCV Latest Ref Range: 82.9 - 93.1 fL 89.2 MCH Latest Ref Range: 27.5 - 32.1 pg 30.0 MCHC Latest Ref Range: 32.0 - 35.7 gm/dL 33.7 RDWSD Latest Ref Range: 36.0 - 45.0 fL 41.0 RDWCV Latest Ref Range: 11.4 - 13.8 % 12.5 Platelets Latest Ref Range: 145 - 357 x10(3)/mcL 313 MPV Latest Ref Range: 7.6 - 12.9 fL 10.5 nRBC % Auto Latest Units: % 0.0 nRBC Abs Auto Latest Ref Range: 0.000 - 0.000 x10(3)/mcL 0.000 Neutr Abs (ANC) Latest Ref Range: 1.70 - 6.10 x10(3)/mcL 4.76 Neutrophils % Latest Units: % 66.3 Immature Gran % Latest Units: % 0.10 Lymphocytes % Latest Units: % 22.3 Monocytes % Latest Units: % 8.6 Eosinophils % Latest Units: % 1.7 Basophils % Latest Units: % 1.0 Vita Gran Abs Latest Ref Range: 0.00 - 0.04 x10(3)/mcL 0.01 Lymphocytes Abs Latest Ref Range: 0.9 - 3.2 x10(3)/mcL 1.6 Monocyte Abs Latest Ref Range: 0.3 - 0.9 x10(3)/mcL 0.6 Eosinophils Abs Latest Ref Range: 0.0 - 0.4 x10(3)/mcL 0.1 Basophils Abs Latest Ref Range: 0.0 - 0.1 x10(3)/mcL 0.1 Sed Rate Latest Ref Range: 0 - 15 mm/hr 7 Vitamin B-12 Latest Ref Range: 232 - 1245 pg/mL 558 EASTON Latest Ref Range: Neg Neg CRP Latest Ref Range: <=4.9 mg/L 0.5 TSH Latest Ref Range: 0.27 - 4.20 mlU/ML 1.02 Chlamydia Gene Amp Latest Ref Range: Negative Neg Chlamydia Source Unknown Urine GC Gene Amp Latest Ref Range: Negative Neg GC Source Unknown Urine documented in this encounter Plan of Treatment Not on file documented as of this encounter Procedures Procedure Name Priority Date/Time Associated Diagnosis Comments GC/CHLAMYDIA Routine 06/22/2018 2:14 PM EDT Chronic right-sided low back pain without sciatica Fatigue, unspecified type GC/CHLAM Routine 06/22/2018 2:14 PM EDT Chronic right-sided low back pain without sciatica Fatigue, unspecified type CRP, ACUTE INFLAMMATION Routine 06/22/2018 2:11 PM EDT Chronic right-sided low back pain without sciatica HEMOGRAM Routine 06/22/2018 2:11 PM EDT Chronic right-sided low back pain without sciatica DIFFERENTIAL, AUTOMATED Routine 06/22/2018 2:11 PM EDT Chronic right-sided low back pain without sciatica SEDIMENTATION RATE Routine 06/22/2018 2: 11 PM EDT Chronic right-sided low back pain without sciatica CBC (WITH DIFF) Routine 06/22/2018 2:11 PM EDT Chronic right-sided low back pain without sciatica EASTON ANTIBODY SCREEN Routine 06/22/2018 2 :11 PM EDT Chronic right-sided low back pain without sciatica Chronic pain of both knees Fatigue, unspecified type TSH Routine 06/22/2018 2:11 PM EDT Fatigue, unspecified type VITAMIN B12 Routine 06/22/2018 2:11 PM EDT Chronic right-sided low back pain without sciatica documented in this encounter Results * GC/Chlam (06/22/2018 2:14 PM EDT) GC Gene Amp Negative Negative [facility] Comment: The only FDA approved specimen types for this assay are cervical, vaginal, urethral and urine. Non-FDA approved sources are eye, throat and rectal and have been internally validated. GC Source Urine [facility] Chlamydia Gene Amp Negative Negative [facility] Comment: The only FDA approved specimen types for this assay are cervical, vaginal, urethral and urine. Non-FDA approved sources are eye, throat and rectal and have been internally validated. Chlm Source Urine [facility] Urine specimen (specimen) 06/22/2018 2:14 PM EDT 06/22/2018 3:04 PM EDT Narrative Resulting Agency Comment Spec In Lab Marciano Rae MD MICROBIOLOGY - [facility] ORDERABLES [facility] [place] [address] * Differential, Automated (06/22/2018 2:11 PM EDT) Neutrophil % 66.3 % [facility] Neutrophil Absolute 4.76 1.70 - 6.10 x10(3)/[facility] Lymph % 22.3 % [facility] Lymphocytes Abs 1.6 0.9 - 3.2 x10(3)/[facility] Monocyte % 8.6 % [facility] Monocyte Abs 0.6 0.3 - 0.9 x10(3)/[facility] Eos % 1.7 % [facility] Eosinophils Abs 0.1 0.0 - 0.4 x10(3)/[facility] Basophil % 1.0 % [facility] Baso Absolute 0.1 0.0 - 0.1 x10(3)/[facility] Immature Gran % 0.10 % [facility] Comment: Immature granulocytes(IG's)percentage and absolute count will include metamyelocytes, myelocytes, and promyelocytes. Blood smears from CBCs yielding IG's will be scanned manually for concordance. If this scan disagrees with the automated IG or if promyelocytes are noted, a manual differential will be performed. Immature Gran Absolute 0.01 0.00 - 0.04 x10(3)/[facility] Blood specimen (specimen) 06/22/2018 2:11 PM EDT 06/22/2018 2:41 PM EDT Narrative Resulting Agency Comment Spec In Lab Marciano Rae MD HEMATOLOGY ORDERA BLES [facility] [place] [address] * (ABNORMAL) Hemogram (06/22/2018 2:11 PM EDT) White Blood Cell 7.2 4.0 - 9.5 x10(3)/mc L [facility] Red Blood Cell 4.53(L) 4.58 - 5.54 x10(6)/mc L [facility] Hemoglobin 13.6(L) 13.7 - 16.5 gm/dL [facility] Hematocrit 40.4(L) 40.5 - 48.5 % [facility] Mean Cell Volume 89.2 82.9 - 93.1 fL [facility] Mean Cell Hemoglobin 30.0 27.5 - 32.1 pg [facility] Mean Cell Hemoglobin Concentration 33.7 32.0 - 35.7 gm/dL [facility] Platelet 313 145 - 357 x10(3)/mc L [facility] RDW Standard Deviation 41.0 36.0 - 45.0 [facility] RDW coefficient of variation 12.5 11.4 - 13.8 % [facility] Mean Platelet Volume 10.5 7.6 - 12.9 [facility] NRBC% auto 0.0 % [facility] NRBC Absolute 0.000 0.000 - 0.000 x10(3)/mc L [facility] Blood specimen (specimen) 06/22/2018 2:11 PM EDT 06/22/2018 2:41 PM EDT Narrative Resulting Agency Comment Spec In Lab Marciano Rae MD HEMATOLOGY ORDERA BLES [facility] [place] [address] * EASTON (06/22/2018 2:11 PM EDT) EASTON Neg Neg [facility] Blood specimen (specimen) 06/22/2018 2:11 PM EDT 06/23/2018 7:15 AM EDT Narrative Resulting Agency Comment Spec In Lab Marciano Rae MD LAB SEND OUT ORDE RABLES Performing Organization Address City/[facility]/ZIP Co de Phone Number [facility] [place] [address] * TSH (06/22/2018 2:11 PM EDT) Thyroid Stimulating Hormone 1.02 0.27 - 4.20 mlU/ML [facility] Blood specimen (specimen) 06/22/2018 2:11 PM EDT 06/22/2018 2:41 PM EDT Narrative Resulting Agency Comment Spec In Lab Marciano Rae MD CHEMISTRY ORDERAB LES Performing Organization Address [facility] Co de Phone Number [facility] [place] [address] * Vitamin B12 (06/22/2018 2:11 PM EDT) Vitamin B12 558 232 - 1,245 pg/mL [facility] Comment: Please note: Effective 09/22/2017, the reference interval and the lower limit of detection for Vitamin B12 have been updated due to a new reagent formulation. Blood specimen (specimen) 06/22/2018 2:11 PM EDT 06/22/2018 2:41 PM EDT Narrative Resulting Agency Comment Spec In Lab Mraciano Rae MD CHEMISTRY ORDERAB LES Performing Organization Address [facility] Co de Phone Number [facility] [place] [address] * CRP, acute inflammation (06/22/2018 2:11 PM EDT) C-Reactive Protein 0.5 <=4.9 mg/L [facility] Blood specimen (specimen) 06/22/2018 2:11 PM EDT 06/22/2018 2:41 PM EDT Narrative Resulting Agency Comment Spec In Lab Marciano Rae MD CHEMISTRY ORDERAB LES Performing Organization Address [facility] [place] [address] * Sedimentation rate (06/22/2018 2:11 PM EDT) Sedimentation Rate Automated 7 0 - 15 mm/hr [facility] Blood specimen (specimen) 06/22/2018 2:11 PM EDT 06/22/2018 2:41 PM EDT Narrative Resulting Agency Comment Spec In Lab Marciano Rae MD HEMATOLOGY ORDERA BLES Performing Organization Address [facility] Co de Phone Number [facility] [place] [address] documented in this encounter Visit Diagnoses Diagnosis Chronic right-sided low back pain without sciatica Chronic pain of both knees Fatigue, unspecified type documented in this encounter Care Teams Core Piler Relationship Specialty Start Date End Date Love Jimenez MD [address] [place] [address] PCP - General 09/27/14 documented as of this encounter
--- OUTSIDE RECORDS SUMMARY | 2024-10-28 17:22 | XMS_ITS | Referral Summary ---
Author Organization [facility] Address [address] [place] [address] Care Team Providers Care Channel Process Plant Operator Name Role Phone Unavailable Primary Care Provider [...] Orientation Not on file Plan of Treatment Not on file
== END 2024-10-28 17:29 | disposition home or self-care (01) ==
PROVIDERS: Emergency Provider Nurse Practitioner Family
DX: S63.293A Dislocation of distal interphalangeal joint of left middle finger, initial encounter (principal); W19.XXXA Unspecified fall, initial encounter; Y92.019 Unspecified place in single-family (private) house as the place of occurrence of the external cause
CPT/HCPCS: 26770; 99283; 73120; J0665